=== PATIENT | male | born 2000 | race American Indian/Alaskan Native ===

== ENCOUNTER 2021-06-10 16:59 | Emergency (ER) | payer OTHER ==
[2021-06-10] MEDS ORDERED: Diphtheria,Pertussis(Acell),Tetanus Vaccine 0.5 ML Syringe IM ONE (19:43)
== END 2021-06-10 20:40 | disposition home or self-care (01) ==
LOC: MW.ED 16:59
DX: J02.9 Acute pharyngitis, unspecified (principal)
CPT/HCPCS: 87651-QW; 99283

== ENCOUNTER 2021-12-24 20:35 | Emergency (ER) | payer OTHER | END 2021-12-24 22:00 | disposition home or self-care (01) | LOC: MW.ED 20:35 | DX: Z02.89 Encounter for other administrative examinations (principal) | CPT/HCPCS: 99282; 99283 ==

== ENCOUNTER 2022-09-04 12:13 | Emergency (ER) | payer SELFPAY ==
[2022-09-04] MEDS ORDERED: Diphtheria,Pertussis(Acell),Tetanus Vaccine 0.5 ML Syringe IM ONE (12:54)
[2022-09-04] MEDS ORDERED: Lidocaine 1% PF 2 ML SDV INJECT ONE ×2 (12:54→14:12)
== END 2022-09-04 15:33 | disposition home or self-care (01) ==
LOC: MW.ED 12:13
DX: S62.641B Nondisplaced fracture of proximal phalanx of left index finger, initial encounter for open fracture (principal); Z72.0 Tobacco use; Z23 Encounter for immunization; W27.0XXA Contact with workbench tool, initial encounter
CPT/HCPCS: 12002; 73140-26-F1; 73140-F1; 90471; 90715; 99283; 99283-25; J3490

== ENCOUNTER 2024-04-12 04:03 | Emergency (ER) | payer OTHER ==
[2024-04-12] MEDS ORDERED: Sodium Chloride 0.9% 10 ML Syringe FLUSH PRN (04:31)
[2024-04-12] MEDS ORDERED: Ketamine 500 mg/10 ML MDV IV PRN (04:41)
[2024-04-12] MEDS ORDERED: Succinylcholine 200 MG/10 ML MDV IV PRN (04:41)
[2024-04-12 04:43] LABS: BASOPHILS ABSOLUTE AUTO 0.07 K/uL (0.00-0.20); BASOPHILS PERCENT AUTO 0.8 % (0.0-1.0); EOSINOPHILS ABSOLUTE AUTO 0.26 K/uL (0.00-0.45); EOSINOPHILS PERCENT AUTO 2.8 % (0.0-6.0); HEMATOCRIT 43.6 % (42.0-52.0); HEMOGLOBIN 15.1 g/dL (14.0-18.0); IMMATURE GRAN ABSOLUTE AUTO 0.02 K/uL (0.00-0.05); IMMATURE GRAN PERCENT AUTO 0.2 % (0.0-0.4); LYMPHOCYTES ABSOLUTE AUTO 2.32 K/uL (1.00-4.80); MEAN CORPUSCULAR HEMOGLOBIN 28.5 pg (28.0-32.0); MEAN CORPUSCULAR HGB CONC 34.6 g/dL (32.0-36.0); MEAN CORPUSCULAR VOLUME 82.4 fL (83.0-99.0); MEAN PLATELET VOLUME 10.7 fL (9.4-12.4); MONOCYTES ABSOLUTE AUTO 0.56 K/uL (0.00-0.80); NEUTROPHILS ABSOLUTE AUTO 6.04 K/uL (1.80-7.70); NEUTROPHILS PERCENT AUTO 65.2 % (41.0-71.0); PLATELET COUNT,PLT 267 K/uL (150-400); RED BLOOD CELL COUNT 5.29 M/uL (4.52-5.90); WHITE BLOOD CELL COUNT,WBC 9.27 K/uL (3.9-11.3)
[2024-04-12] MEDS: Ondansetron 4 MG/2 ML SDV IVPUSH ONE (04:53)
[2024-04-12] MEDS: Sodium Chloride 0.9% 1,000 ML IV ONE (04:53)
[2024-04-12 04:57] LABS: BASE EXCESS VENOUS 0.9 (-2.0-3.0); PH,VENOUS 7.4 (7.31-7.41)
[2024-04-12] MEDS: Benzocaine 20% Topical Spray UD MUCMEM ONE (04:57)
[2024-04-12 05:08] LABS: A/G RATIO 1.1 (0.9-1.6); ALANINE AMINOTRANSFERASE,ALT 39 IU/L (14-63); ALBUMIN 3.8 g/dL (3.4-5.0); ALKALINE PHOSPHATASE 75 U/L (46-116); ASPARTATE AMNIOTRANSFERASE,AST 16 IU/L (15-37); BILIRUBIN TOTAL 0.4 mg/dL (0.2-1.0); BLOOD UREA NITROGEN,BUN 23 mg/dL (7.0-18.0); CALCIUM 8.8 mg/dL (8.5-10.1); CHLORIDE,CL 104 mmol/L (98-107); GLUCOSE RANDOM 148 mg/dL (74-106); POTASSIUM,K 3.9 mmol/L (3.5-5.1); PROTEIN TOTAL,TP 7.4 g/dL (6.4-8.2); SODIUM,NA 141 mmol/L (136-148)
[2024-04-12 05:13] LABS: ESTIMATED GFR 108 mL/min (>60)
[2024-04-12] MEDS: Acetaminophen 500 MG Tab PO ONE (07:00)
[2024-04-12] MEDS: Ketorolac 30 MG/ML SDV IVPUSH ONE (07:00)
[2024-04-12] MEDS: Morphine 2 MG/ML SYRINGE IVPUSH ONE (07:01)
[2024-04-12] MEDS: Bacitracin Oint 28.35 GM Tube TOP STA (07:01)
== END 2024-04-12 07:57 | disposition home or self-care (01) ==
LOC: MW.ED 04:03
DX: T22.211A Burn of second degree of right forearm, initial encounter (principal); T21.24XA Burn of second degree of lower back, initial encounter; T20.10XA Burn of first degree of head, face, and neck, unspecified site, initial encounter; T59.811A Toxic effect of smoke, accidental (unintentional), initial encounter; T31.0 Burns involving less than 10% of body surface; F17.210 Nicotine dependence, cigarettes, uncomplicated; Z79.899 Other long term (current) drug therapy; X00.0XXA Exposure to flames in uncontrolled fire in building or structure, initial encounter
CPT/HCPCS: 36415; 71045; 80053; 82375; 82803; 85025; 96361; 96374; 96375; 99285; A9270; J1885; J2270; J2405; J7030; J0330